=== PATIENT | male | born 1995 | race African-American/Black ===

== ENCOUNTER 2018-10-21 01:26 | Inpatient (IN) | payer SELFPAY ==
[2018-10-21] MEDS ORDERED: NS 0.9% 1000 ML** 1,000 ML IV ONE ×2 (01:57→03:11)
--- NOTE | 2018-10-21 02:02 | ED ---
HPI Diabetic - HPI Summary HPI Summary: Pt is a 23 y/o M presenting to the ED brought in by EMS for syncope. EMS reports the initial fingerstick read 40, and the second one read 30, and he had very low blood pressure, so they gave him d10. The pt reports that he was in a store to get something to drink due to a reported hx of hypoglycemia when he passed out. He denies fever. However, he denies a pmhx of diabetes. - History Of Current Complaint Chief Complaint: EDDiabeticProb Time Seen by Provider: 10/21/18 01:53 Hx Obtained From: Patient, EMS Onset/Duration: Sudden Onset, Lasting Minutes, Resolved Timing: Intermittent Episode Lasting - minutes Severity Initially: Moderate Severity Currently: Mild Character: Alert Aggravating: Other - hx of hypoglycemia Alleviating: EMS Treatment Associated Signs & Symptoms: Decreased Level of Conciousness Related History: Other - hx of hypoglycemia, no diagnosed diabetes - Allergies/Home Medications Allergies/Adverse Reactions: Allergies Allergy/AdvReac Type Severity Reaction Status Date / Time No Known Allergies Allergy Verified 10/21/18 01:45 Home Medications: Home Medications NK [No Home Medications Reported] 10/21/18 [History Confirmed 10/21/18] PMH/Surg Hx/FS Hx/Imm Hx Previously Healthy: Yes Endocrine/Hematology History: Reports: Other Endocrine/Hematological Disorders - hypoglycemia EENT History: Denies: Hx Deafness - Immunization History Date of Tetanus Vaccine: unk Date of Influenza Vaccine: unk Infectious Disease History: No Infectious Disease History: Denies: Traveled Outside the [place] in Last 30 Days - Family History Known Family History: Positive: Diabetes Negative: Renal Disease - Social History Alcohol Use: Rare Hx Substance Use: No Substance Use Type: Reports: None Hx Tobacco Use: No Smoking Status (MU): Never Smoked Tobacco Review of Systems Negative: Fever Positive: Syncope All Other Systems Reviewed And Are Negative: Yes Physical Exam - Summary Physical Exam Summary: VITAL SIGNS: Reviewed. GENERAL: Patient is a well-developed and nourished male who is lying comfortable in the stretcher. Patient is not in any acute respiratory distress. HEAD AND FACE: No signs of trauma. No ecchymosis, hematomas or skull depressions. No sinus tenderness. EYES: PERRLA, EOMI x 2, No injected conjunctiva, no nystagmus. EARS: Hearing grossly intact. Ear canals and tympanic membranes are within normal limits. MOUTH: Oropharynx within normal limits. NECK: Supple, trachea is midline, no adenopathy, no JVD, no carotid bruit, no c- spine tenderness, neck with full ROM. CHEST: Symmetric, no tenderness at palpation LUNGS: Clear to auscultation bilaterally. No wheezing or crackles. CVS: Tachycardic, S1 and S2 present, no murmurs or gallops appreciated. ABDOMEN: Soft, non-tender. No signs of distention. No rebound no guarding, and no masses palpated. Bowel sounds are normal. EXTREMITIES: FROM in all major joints, no edema, no cyanosis or clubbing. NEURO: Alert and oriented x 3 but slowly responsive. No acute neurological deficits. Speech is normal and follows commands. SKIN: Dry and warm GCS: 15 Triage Information Reviewed: Yes Vital Signs On Initial Exam: Initial Vitals Temp Pulse Resp BP Pulse Ox 97.8 F 108 16 147/126 100 10/21/18 01:39 10/21/18 01:39 10/21/18 01:39 10/21/18 01:39 10/21/18 01:39 Vital Signs Reviewed: Yes Diagnostics - Vital Signs Vital Signs Temp Pulse Resp BP Pulse Ox 10/21/18 01:39 97.8 F 108 16 147/126 100 - Laboratory Result Diagrams: 10/21/18 02:33 10/21/18 02:33 Lab Statement: Any lab studies that have been ordered have been reviewed, and results considered in the medical decision making process. - Radiology CXR Radiology Interpretation Completed By: ED Physician Summary of Radiographic Findings: No acute process. Pending official radiology report. - CT Brain CT CT Interpretation Completed By: Radiologist Summary of CT Findings: Normal non-contrast head CT. ED physician has reviewed this report. - EKG 0208 Cardiac Rate: Tachycardia - 114bpm EKG Rhythm: Sinus Tachycardia ST Segment: Normal Ectopy: None Re-Evaluation - Re-Evaluation 1st re-eval Re-Evaluation Time: 03:20 Change: Unchanged Comment: After speaking with the patient more, I learned his mother and twin sister have diabetes. He also notes he has experienced polydypsia for the last few months without polyuria. Diabetic Course/Dx - Course Course Of Treatment: Pt is a 23 y/o M presenting to the ED brought in by EMS for syncope. EMS reports the initial fingerstick read 40, and the second one read 30, and he had very low blood pressure, so they gave him d10. The pt reports a hx of hypoglycemia but no hx of diabetes. Brain CT shows normal non- contrast head CT. CXR shows no acute process, pending official radiology report. After speaking with the patient more at 0320, I learned his mother and twin sister have diabetes. He also notes he has experienced polydypsia for the last few months without polyuria. The pt will be admitted to [facility] under Dr. Blount with a dx of DKA. - Diagnoses Provider Diagnoses: DKA (diabetic ketoacidoses) - Critical Care Time Critical Care Time: 30-74 min Discharge - Sign-Out/Discharge Documenting (check all that apply): Patient Departure Patient Received Moderate/Deep Sedation with Procedure: No - Discharge Plan Condition: Stable Disposition: ADMITTED TO [facility] Referrals: [facility] [Outside] - Billing Disposition and Condition Condition: STABLE Disposition: Admitted to [facility] - Attestation Statements Document Initiated by Scribe: Yes Documenting Scribe: Bernadette Cruz Provider For Whom Scribe is Documenting (Include Credential): Jade Saunders MD. Scribe Attestation: IBernadette, dannied for Jade Saunders MD. on 10/21/18 at 0600. Scribe Documentation Reviewed: Yes Provider Attestation: The documentation as recorded by the scribe, Bernadette Cruz accurately reflects the service I personally performed and the decisions made by me, Jade Saunders MD. Status of Scribe Document: Viewed Consult Consult: 032 - Spoke with Dr. Blount who will be the accepting physician to [facility].
[2018-10-21 02:49] LABS: INR 1.19 (0.77-1.02)
[2018-10-21 02:50] LABS: ABS Basophils 0 10^3/ul (0-0.2); ABS Eosinophils 0 10^3/ul (0-0.6); ABS Lymphocytes 1.3 10^3/ul (1.0-4.8); ABS Monocytes 0.6 10^3/ul (0-0.8); ABS Neutrophils 2.3 10^3/ul (1.5-7.7); ABS Nucleated RBC 0 10^3/ul; Eosinophil % 0.8 %; Hematocrit 46 % (36-46); Mean Corpuscular HGB Conc 33 g/dL (31-36); Mean Corpuscular Hemoglobin 27 pg (27-31); Mean Corpuscular Volume 84 fL (80-94); Mean Platelet Volume 8.4 fL (7.4-10.4); Nucleated Red Blood Cells % 0.1; Platelet Count 219 10^3/uL (150-450); Red Blood Count 5.49 10^6 /uL (4.18-5.48); Red Cell Distribution Width 15 % (10.5-15); White Blood Count 4.3 10^3/uL (3.5-10.8)
[2018-10-21 02:59] LABS: ALT 8 U/L (7-52); AST 16 U/L (13-39); Albumin 4.3 g/dL (3.2-5.2); Albumin/Globulin Ratio 1.3 (1-3); Alkaline Phosphatase 62 U/L (34-104); Anion Gap 18 mmol/L (2-11); BUN/Creatinine Ratio 11.1 (8-20); Blood Urea Nitrogen 16 mg/dL (6-24); CO2 Carbon Dioxide 15 mmol/L (22-32); Calcium 9.9 mg/dL (8.6-10.3); Chloride 92 mmol/L (101-111); EGFR African American 74.2 (>60); EGFR Non-African American 61.3 (>60); Globulin 3.4 g/dL (2-4); Glucose 269 mg/dL (70-100); Magnesium 1.8 mg/dL (1.9-2.7); Potassium 4.2 mmol/L (3.5-5.0); Sodium 125 mmol/L (135-145); Total Protein 7.7 g/dL (6.4-8.9)
[2018-10-21 03:04] LABS: Alcohol < 10 mg/dL (<10)
[2018-10-21 03:20] LABS: TSH (Thyroid Stimulating Horm) 8.74 mcIU/mL (0.34-5.60)
[2018-10-21 03:57] LABS: Urine Appearance Cloudy; Urine Bacteria Absent (Absent); Urine Bilirubin Negative (Negative); Urine Blood 2+ (Negative); Urine Color Yellow; Urine Glucose Negative (Negative); Urine Ketones 2+ (Negative); Urine Nitrite Negative (Negative); Urine Protein 1+(30 mg/dL) (Negative); Urine Red Blood Cell Trace(0-2/hpf) (Absent); Urine Specific Gravity 1.012 (1.010-1.030); Urine Urobilinogen Negative (Negative); Urine White Blood Cell Absent (Absent)
[2018-10-21] MEDS ORDERED: Insulin IVPB 100 units/100 ml 100 UNITS/100 ML UNIT IVPB SCH ×2 (04:00→08:00)
[2018-10-21] MEDS ORDERED: D5W NS 0.9% 20Meq KCL 1000 ML* 1,000 ML IV SCH (04:00)
[2018-10-21 04:06] LABS: Barbiturates Urine Screen None Detected (None Detect); Benzodiazepine Urine Screen None Detected (None Detect); Urine Cannabinoids Screen None Detected (None Detect)
[2018-10-21] MEDS ORDERED: Magnesium Sulfate 1 GM IV* 1 GM/100 ML BAG IV ONE (06:08)
[2018-10-21 06:44] LABS: Potassium 3.7 mmol/L (3.5-5.0)
[2018-10-21 06:45] LABS: BUN/Creatinine Ratio 12.4 (8-20); Calcium 8.6 mg/dL (8.6-10.3); EGFR African American 106.9 (>60); EGFR Non-African American 88.3 (>60)
[2018-10-21 07:51] LABS: Phosphorus 4.8 mg/dL (2.5-5.0)
--- NOTE | 2018-10-21 07:57 | HP ---
HISTORY AND PHYSICAL: DATE OF ADMISSION: 10/21/18 PRIMARY CARE PHYSICIAN: None. HEALTHCARE PROXY: He prefers that his mother Nadira is his healthcare proxy. CODE STATUS: full code. CHIEF COMPLAINT: Acute tiredness and blurry eyes. HISTORY OF PRESENT ILLNESS: Mr. Beaver is a 23-year-old male without past medical history, who is presenting from a gas station where he was buying a sugary drink and had acute onset of blurry vision and tiredness, causing him to rest on the floor of the gas station, so EMS was called to take him to the hospital. On further questioning, he does report that for the last several days he has been experiencing progressive fatigue and tiredness with increased urination and thirst. He denies recent illness. Denies sore throat, cough, dysuria, chest pain, abdominal pain, nausea, vomiting, constipation, or diarrhea. Otherwise, 10-point review of systems negative. Per ED documentation, EMS reports initial fingerstick at the gas station was 40 and second one was 30, and the patient had very low blood pressure, so he was given D10. In the emergency room, the patient was noted to be dehydrated on exam. He had a chest x-ray without acute process and a head CT that was normal. He was noted to have a sodium of 125, corrected to 126 for glucose 270. Lactic acid 3.4, potassium 4.2, pH 7.14, anion gap 18, and urine with 2+ ketones and otherwise not concerning for infection. He was started on normal saline D5 with potassium and also an insulin drip. His IV fluids were set at 250 cc per hour. PAST MEDICAL HISTORY: The patient denies past medical diagnoses, surgeries, or hospitalization. MEDICATIONS: Denies home medications. ALLERGIES: No known drug allergies. FAMILY HISTORY: The patient has a twin sister with insulin-dependant diabetes and mother with type 2 diabetes, not on insulin. 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 He does not use tobacco, alcohol, or injectable drugs. Occasionally smokes marijuana. Lives alone, not in a relationship. PHYSICAL EXAMINATION GENERAL: Tired appearing young man, alert and interactive. VITAL SIGNS: The patient is afebrile with heart rate 110, respiratory rate 14, blood pressure 117/79, SaO2 100% on room air. HEENT: Pupils equal, round, reactive to light. Mucous membranes dry. NECK: Supple. LUNGS: Clear to auscultation bilaterally. HEART: Tachycardic but regular rhythm. No murmurs, gallops, or rubs. ABDOMEN: Soft, nontender, nondistended. EXTREMITIES: Warm and well perfused without edema. DIAGNOSTIC STUDIES/LAB DATA: CBC unremarkable. TSH elevated at 8.7 BMP significant for hyponatremia 126 when corrected. Anion gap 18, potassium 4.2. Creatinine elevated at 1.4, unknown baseline. Glucose 269. Lactic acid 3.4, not repeated. Magnesium 1.8. Hepatic panel notable for total bilirubin of 1.5. Chest x-ray without acute pathology. Brain CT, normal noncontrast head CT. ASSESSMENT AND PLAN: 23-year-old man with subacute polydipsia, fatigue, and acute tiredness and blurry vision, found with hypovolemia, hyperglycemia, acidosis and ketones in the urine concerning for new diagnosis of type 1 diabetes complicated by DKA. No evidence concerning for infection at this time. 1. Type 1 diabetes c/b diabetic ketoacidosis. The patient remains on insulin drip with D5 normal saline with added potassium. He should have q.2 hour BMP/Mg /Phos, pH, and glucose until his lab values are stable and his anion gap closes. Currently only with 1 set of lab results, but I suspect his DKA to resolve quickly. When serum glucose reaches 200 and ketoacidosis resolves, he will be titrated off IV insulin when able to tolerate PO and will be started on subcu insulin. He will have aggressive potassium repletion with close monitoring of his hemodynamics in the ICU. Consult endocrine in the morning for new type 1 DM diagnosis/education. 2. FEN: currently on IV fluids, continue until blood sugar improves and pt is euvolemic. 3. DVT prophylaxis, the patient is low risk and ambulatory. 4. FULL CODE. TIME SPENT: Approximately 60 minutes was spent on admission of this patient, more than half of which was spent at bedside for interview and exam. [id number]/CPS #: [id number] AIDEN
[2018-10-21] MEDS: D5W NS 0.9% 20Meq KCL 1000 ML* 1,000 ML IV SCH ×3 (08:05→19:49)
[2018-10-21] MEDS: Lactated Ringers 1000 ML Bag* 1,000 ML IV SCH ×2 (08:05→15:35)
--- NOTE | 2018-10-21 08:47 | PN ---
Subjective Date of Service: 10/21/18 Interval History: HOSPITALIST PROGRESS NOTE Patient seen and examined at bedside. Care reviewed and d/w Madelyn Villanueva RN. He feels a little better today. Denies N/V, abdominal pain; appetite has not yet returned. Family History: Unchanged from Admission Social History: Unchanged from Admission Past Medical History: Unchanged from Admission Objective Active Medications: Insulin Human Regular (Insulin Regular Iv Drip 1 Unit/Ml) 100 units in 100 mls @ 7.258 mls/hr IVPB Q13H TRICE; Protocol Lactated Ringer's (Lactated Ringers 1000 Ml Bag*) 1,000 mls @ 150 mls/hr IV PER RATE TRICE Potassium Chloride/Dextrose (D5w Ns 0.9% 20meq Kcl 1000 Ml*) 1,000 mls @ 150 mls/hr IV PER RATE TRICE Vital Signs - 8 hr 10/21/18 10/21/18 10/21/18 01:39 01:51 01:54 Temperature 97.8 F Pulse Rate 108 108 105 Respiratory 16 12 14 Rate Blood Pressure 147/126 147/126 (mmHg) O2 Sat by Pulse 100 100 100 Oximetry 10/21/18 10/21/18 10/21/18 02:00 02:45 03:00 Temperature Pulse Rate 103 100 102 Respiratory 17 15 18 Rate Blood Pressure 91/69 (mmHg) O2 Sat by Pulse 95 Oximetry 10/21/18 10/21/18 10/21/18 03:15 03:45 04:00 Temperature Pulse Rate 108 112 108 Respiratory 17 17 20 Rate Blood Pressure 90/69 117/72 (mmHg) O2 Sat by Pulse 100 Oximetry 10/21/18 10/21/18 10/21/18 04:15 04:45 05:00 Temperature Pulse Rate 111 112 Respiratory 21 22 18 Rate Blood Pressure 104/68 103/66 (mmHg) O2 Sat by Pulse 98 98 Oximetry 10/21/18 10/21/18 10/21/18 05:16 05:45 06:00 Temperature Pulse Rate 113 122 110 Respiratory 20 14 21 Rate Blood Pressure 118/74 117/79 (mmHg) O2 Sat by Pulse 100 100 100 Oximetry 10/21/18 10/21/18 10/21/18 06:18 06:45 07:00 Temperature Pulse Rate 129 129 118 Respiratory 19 14 22 Rate Blood Pressure 110/66 104/60 (mmHg) O2 Sat by Pulse 100 100 Oximetry 10/21/18 10/21/18 10/21/18 07:17 07:22 07:33 Temperature Pulse Rate 137 Respiratory 23 20 18 Rate Blood Pressure 110/57 105/61 103/67 (mmHg) O2 Sat by Pulse 100 Oximetry 10/21/18 10/21/18 07:35 07:53 Temperature 99.4 F 98 F Pulse Rate 160 140 Respiratory 18 19 Rate Blood Pressure 103/67 103/67 (mmHg) O2 Sat by Pulse 98 97 Oximetry Oxygen Devices in Use Now: None Appearance: Young thin gentleman lying in bed in NAD. Eyes: No Scleral Icterus Ears/Nose/Mouth/Throat: - - Dry MM Neck: Trachea Midline Respiratory: Symmetrical Chest Expansion and Respiratory Effort, Clear to Auscultation Cardiovascular: RRR - Normal S1 and S2 Abdominal: NL Sounds; No Tenderness; No Distention Extremities: No Edema Neurological: Alert and Oriented x 3, NL Muscle Strength and Tone Result Diagrams: 10/21/18 02:33 10/21/18 10:10 Assess/Plan/Problems-Billing Assessment: Mr Beaver is a 23yo M with no medical history, who presented to ED with c/o fatigue and blurry vision, found to have newly diagnosed diabetes with DKA. - Patient Problems (1) DKA (diabetic ketoacidosis) Comment: - DKA is now resolved. - Will start Lantus and d/c insulin drip. - Tolerating diet. - Still dehydrated, continue IVF. - Endocrinology consult requested. - Follow A1c. - Diabetes education. (2) DVT prophylaxis Comment: - SCDs. (3) Full code status Status and Disposition: Inpatient. May transfer to floor later if stable.
[2018-10-21 10:40] LABS: BUN/Creatinine Ratio 10.6 (8-20); Calcium 8.8 mg/dL (8.6-10.3); EGFR African American 121.4 (>60); EGFR Non-African American 100.4 (>60); Potassium 3.9 mmol/L (3.5-5.0)
[2018-10-21] MEDS ORDERED: Insulin GLARGINE(*) 1 UNITS UNIT SUBCUT SCH (11:00)
[2018-10-21] MEDS ORDERED: Insulin GLARGINE(*) 1 UNITS UNIT ONE (11:13)
[2018-10-21] MEDS ORDERED: Potassium Phosphate IV* 15 MMOLE in NS 0.9% 250 ML* 250 ML IVPB ONE (13:00)
[2018-10-21 15:30] LABS: Anion Gap 6 mmol/L (2-11); BUN/Creatinine Ratio 8.3 (8-20); Blood Urea Nitrogen 7 mg/dL (6-24); CO2 Carbon Dioxide 19 mmol/L (22-32); Calcium 8.3 mg/dL (8.6-10.3); Chloride 106 mmol/L (101-111); EGFR African American 138.3 (>60); EGFR Non-African American 114.3 (>60); Glucose 159 mg/dL (70-100); Potassium 3.8 mmol/L (3.5-5.0); Sodium 131 mmol/L (135-145)
[2018-10-21 15:31] LABS: Phosphorus < 1.0 mg/dL (2.5-5.0)
[2018-10-21] MEDS: Potassium & Sodium Phos 250MG* = 1 PACKET PO SCH ×2 (17:24→21:18)
[2018-10-22] MEDS: D5W NS 0.9% 20Meq KCL 1000 ML* 1,000 ML IV SCH ×2 (01:45→06:40)
[2018-10-22 07:02] LABS: BUN/Creatinine Ratio 4.5 (8-20); EGFR African American 179.5 (>60); EGFR Non-African American 148.3 (>60); Potassium 3.7 mmol/L (3.5-5.0)
[2018-10-22] MEDS: Potassium & Sodium Phos 250MG* = 1 PACKET PO SCH ×3 (09:22→21:40)
--- NOTE | 2018-10-22 12:13 | CONSULT ---
Consult Consult: [facility] Inpatient Consult Note Date of Consult: 10/22/18 Reason for Consult: hypoglycemia Reason for Admission: hypoglycemia with metabolic acidosis ASSESSMENT: 23 yo M with no significant PMH in usual state of health, now with with apparent syncopal episode caused by hypoglycemia. Unprovoked hypoglycemia with neuroglycopenia is exceedingly rare, but patient's history, including Whipple's Triad, is consistent with this disorder. To further characterize the possible causes of hypoglycemia, I recommend 72 hour fast with serial measurement of both fingerstick and plasma glucose, as below. The fast is ended when the plasma glucose concentration is <45, the patient has symptoms or signs of hypoglycemia, 72 hours have elapsed, or when the plasma glucose concentration is <60. Note is made of ketonuria on presentation, which makes insulin-mediated hypoglycemia unlikely. Toxic causes of lactic acidosis and hypoglycemia include : metformin, simvastatin, salicylates, ethanol, methanol, acetaminophen and catecholamines. Patient specifically denies ingestion of these agents. PLAN: - check fingerstick glucose every 2 hours and confirm measurements <60 with plasma glucose in lab - collect plasma specimen every 6 hours for measurement of plasma glucose - if plasma glucose <60, send specimen for the following labs: - insulin - C-peptide - proinsulin - serum ketones - insulin antibodies - sulfonylurea screen - when plasma glucose less than 60, administer 1mg of glucagon IV and measure fingerstick glucose at 0, 10, 20 and 30 minutes, then refeed the patient - if patient does not experience hypoglycemia in 72 hours, refeed patient with 2 cans of Ensure (or similar) and measure fingerstick glucose at 0, 30, 60, 90 and 120 minutes - call [phone] with questions SUBJECTIVE: History of Present Illness: 23 yo M presenting via EMS with near-syncope and hypoglocemia. He went to a gas station on Sunday night prior to presenting and noted altered vision, faint feeling and collapse. He did not completely lose consciousness, but felt as though he would. EMS noted severe hypoglycemia on arrival and gave dextrose with partial, rapid recovery in symptoms. In ED, he was found to have blood glucose >200 and metabolic acidosis, with presumptive diagnosis of DKA, despite A1c 4.8%. He did not tolerate insulin drip and developed relative hypoglycemia within several hours of receiving insulin. He has had several BG<70 in the next 24 hours. Past Medical History: none Medications Prior to Admission: none Inpatient Medications: Potassium Phos/Sodium Phos (Neutra Phos 250 Mg Khari*) 250 mg PO TID TRICE Last Admin: 10/22/18 14:29 Dose: 250 mg Allergies/Intolerances: NKDA Social History: Lives alone, but was homeless until very recently. Currently unemployed, formerly studied design. Denies recent alcohol, tobacco or other drugs. Not sexually active. Family History: Twin sister, currently . Strong family history of diabetes in multiple first and second-degree family members, including both parents. Review of Systems: As above. No recent FCNVD. 10 system review is otherwise negative. There is no history of obesity or recent weight loss. OBJECTIVE: Temp Pulse Resp BP Pulse Ox 98.1 F 77 16 123/53 99 10/22/18 15:26 10/22/18 15:26 10/22/18 15:26 10/22/18 15:26 10/22/18 15:26 General: alert, pleasant, oriented, no distress ENT: neck supple, no thyromegaly, no bruit is heard Chest: CTAB, no wheezing or crackles CV: RRR, no murmur Abdomen: soft, non-tender Extremities: no edema, distal pulses intact Skin: warm, dry, no rash Neuro: grossly intact motor/sensory in extremities Psych: restricted affect, pleasant Labs: WBC 4.3 10^3/uL (3.5-10.8) 10/21/18 02:33 RBC 5.49 10^6 /uL (4.18-5.48) H 10/21/18 02:33 Hgb 15.0 g/dL (14.0-18.0) 10/21/18 02:33 Hct 46 % (36-46) 10/21/18 02:33 MCV 84 fL (80-94) 10/21/18 02:33 MCH 27 pg (27-31) 10/21/18 02:33 MCHC 33 g/dL (31-36) 10/21/18 02:33 RDW 15 % (10.5-15) 10/21/18 02:33 Plt Count 219 10^3/uL (150-450) 10/21/18 02:33 MPV 8.4 fL (7.4-10.4) 10/21/18 02:33 Neut % (Auto) 53.4 % 10/21/18 02:33 Lymph % (Auto) 31.0 % 10/21/18 02:33 Parker % (Auto) 14.3 % 10/21/18 02:33 Eos % (Auto) 0.8 % 10/21/18 02:33 Baso % (Auto) 0.5 % 10/21/18 02:33 Absolute Neuts (auto) 2.3 10^3/ul (1.5-7.7) 10/21/18 02:33 Absolute Lymphs (auto) 1.3 10^3/ul (1.0-4.8) 10/21/18 02:33 Absolute Monos (auto) 0.6 10^3/ul (0-0.8) 10/21/18 02:33 Absolute Eos (auto) 0 10^3/ul (0-0.6) 10/21/18 02:33 Absolute Basos (auto) 0 10^3/ul (0-0.2) 10/21/18 02:33 Absolute Nucleated RBC 0 10^3/ul 10/21/18 02:33 Nucleated RBC % 0.1 10/21/18 02:33 Sickle Cell Screen Negative (Negative) 10/21/18 06:12 INR (Anticoag Therapy) 1.19 (0.77-1.02) H 10/21/18 02:33 APTT 48.0 seconds (26.0-36.3) H 10/21/18 02:33 VBG pH 7.27 (7.32-7.43) L 10/21/18 06:18 VBG pCO2 44 mmHg (41-51) 10/21/18 06:18 VBG pO2 < 38.0 mmHg (35-45) 10/21/18 06:18 VBG HCO3 18.2 mmol/L (24-28) L 10/21/18 06:18 VBG O2 Saturation 40.7 % (70-80) L 10/21/18 06:18 VBG Base Excess -6.6 mmol/L (0.0-4.0) L 10/21/18 06:18 Sodium 138 mmol/L (135-145) 10/22/18 06:21 Potassium 3.7 mmol/L (3.5-5.0) 10/22/18 06:21 Chloride 111 mmol/L (101-111) 10/22/18 06:21 Carbon Dioxide 23 mmol/L (22-32) 10/22/18 06:21 Anion Gap 4 mmol/L (2-11) 10/22/18 06:21 BUN 3 mg/dL (6-24) L 10/22/18 06:21 Creatinine 0.67 mg/dL (0.67-1.17) 10/22/18 06:21 Est GFR ( Amer) 179.5 (>60) 10/22/18 06:21 Est GFR (Non-Af Amer) 148.3 (>60) 10/22/18 06:21 BUN/Creatinine Ratio 4.5 (8-20) L 10/22/18 06:21 Glucose 96 mg/dL (70-100) 10/22/18 06:21 POC Glucose (mg/dL) 84 mg/dL (70-100) 10/22/18 16:04 Hemoglobin A1c 4.8 % (4.0-5.6) 10/21/18 02:33 Lactic Acid 1.6 mmol/L (0.5-2.0) 10/21/18 06:18 Calcium 8.0 mg/dL (8.6-10.3) L 10/22/18 06:21 Phosphorus < 1.0 mg/dL (2.5-5.0) L* 10/21/18 14:58 Magnesium 1.8 mg/dL (1.9-2.7) L 10/21/18 02:33 Total Bilirubin 1.50 mg/dL (0.2-1.0) H 10/21/18 02:33 AST 16 U/L (13-39) 10/21/18 02:33 ALT 8 U/L (7-52) 10/21/18 02:33 Alkaline Phosphatase 62 U/L (34-104) 10/21/18 02:33 Total Protein 7.7 g/dL (6.4-8.9) 10/21/18 02:33 Albumin 4.3 g/dL (3.2-5.2) 10/21/18 02:33 Globulin 3.4 g/dL (2-4) 10/21/18 02:33 Albumin/Globulin Ratio 1.3 (1-3) 10/21/18 02:33 TSH 8.74 mcIU/mL (0.34-5.60) H 10/21/18 02:33 Urine Color Yellow 10/21/18 03:38 Urine Appearance Cloudy 10/21/18 03:38 Urine pH 5.0 (5-9) 10/21/18 03:38 Ur Specific Maskell 1.012 (1.010-1.030) 10/21/18 03:38 Urine Protein 1+(30 mg/dl) (Negative) A 10/21/18 03:38 Urine Ketones 2+ (Negative) A 10/21/18 03:38 Urine Blood 2+ (Negative) A 10/21/18 03:38 Urine Nitrate Negative (Negative) 10/21/18 03:38 Urine Bilirubin Negative (Negative) 10/21/18 03:38 Urine Urobilinogen Negative (Negative) 10/21/18 03:38 Ur Leukocyte Esterase Negative (Negative) 10/21/18 03:38 Urine WBC (Auto) Absent (Absent) 10/21/18 03:38 Urine RBC (Auto) Trace(0-2/hpf) (Absent) 10/21/18 03:38 Urine Bacteria Absent (Absent) 10/21/18 03:38 Hyaline Casts Present (Absent) A 10/21/18 03:38 Urine Glucose Negative (Negative) 10/21/18 03:38 Urine Opiates Screen None detected (None Detect) 10/21/18 03:38 Ur Barbiturates Screen None detected (None Detect) 10/21/18 03:38 Ur Phencyclidine Scrn None detected (None Detect) 10/21/18 03:38 Ur Amphetamines Screen None detected (None Detect) 10/21/18 03:38 U Benzodiazepines Scrn None detected (None Detect) 10/21/18 03:38 Urine Cocaine Screen None detected (None Detect) 10/21/18 03:38 U Cannabinoids Screen None detected (None Detect) 10/21/18 03:38 Serum Alcohol < 10 mg/dL (<10) 10/21/18 02:33
--- NOTE | 2018-10-22 14:57 | PN ---
Subjective Date of Service: 10/22/18 Interval History: HOSPITALIST PROGRESS NOTE Patient seen and examined at bedside. Care reviewed and d/w Alysha Page RN. He feels better today, denies complaints. Further review of the records reveals patient was feeling dizzy, could not read his card while trying to buy a beverage, felt very weak and collapsed. Denies LOC. EMS was called and his glucose was 40. He received dextrose and was transported to ED, where he was hyperglycemia on arrival. Family History: Unchanged from Admission Social History: Unchanged from Admission Past Medical History: Unchanged from Admission Objective Active Medications: Potassium Phos/Sodium Phos (Neutra Phos 250 Mg Khari*) 250 mg PO TID TRICE Last Admin: 10/22/18 14:29 Dose: 250 mg Vital Signs - 8 hr 10/22/18 10/22/18 07:46 08:57 Temperature 97.9 F Pulse Rate 109 Respiratory 16 16 Rate Blood Pressure 108/51 (mmHg) O2 Sat by Pulse 99 Oximetry Oxygen Devices in Use Now: None Appearance: Thin young gentleman sitting up in bed in NAD. Eyes: No Scleral Icterus Ears/Nose/Mouth/Throat: Mucous Membranes Moist Neck: Trachea Midline Respiratory: Symmetrical Chest Expansion and Respiratory Effort, Clear to Auscultation Cardiovascular: RRR - Normal S1 and S2 Abdominal: NL Sounds; No Tenderness; No Distention Neurological: Alert and Oriented x 3, NL Muscle Strength and Tone, - - Poor eye contact Result Diagrams: 10/21/18 02:33 10/22/18 06:21 Assess/Plan/Problems-Billing Assessment: Mr Beaver is a 23yo M with no medical history, who presented to ED with c/o fatigue and blurry vision, found to have newly diagnosed diabetes with DKA. - Patient Problems (1) Hypoglycemia Comment: - Patient did not have DKA, he was actually hypoglycemic. - Case d/w Dr Mariusz Ribeiro - recommended NPO (water only) and d/c IVF. Check FS q2h and when <55 to check glucose (blood draw), insulin, C peptide levels. - His mother has type 2 DM and uses insulin. (2) DVT prophylaxis Comment: - SCDs. (3) Full code status Status and Disposition: Inpatient. Will pursue hypoglycemia w/u.
[2018-10-22] MEDS ORDERED: Glucagon* 1 MG VIAL IV ONE (23:47)
--- NOTE | 2018-10-23 01:28 | PN ---
Progress Note - Progress Note Date of Service: 10/23/18 Note: Patient with glucose < 60. Labs are being sent. Will follow instructions per Dr. Ribeiro and all him to have a regular diet once glucose and labs are ordered per instructions.
[2018-10-23] MEDS ORDERED: Acetaminophen TAB* 325 MG PO PRN (08:03)
[2018-10-23 09:21] LABS: BUN/Creatinine Ratio 5.2 (8-20); Calcium 8.5 mg/dL (8.6-10.3); EGFR Non-African American 175.2 (>60); Phosphorus 3.5 mg/dL (2.5-5.0); Potassium 3.5 mmol/L (3.5-5.0)
--- NOTE | 2018-10-23 10:52 | PN ---
Subjective Date of Service: 10/23/18 Family History: Unchanged from Admission Social History: Unchanged from Admission Past Medical History: Unchanged from Admission Objective Active Medications: Acetaminophen (Tylenol Tab*) 650 mg PO Q6H PRN PRN Reason: pain/fever Vital Signs - 8 hr 10/23/18 10/23/18 07:57 08:00 Temperature 99.0 F Pulse Rate 40 Respiratory 14 16 Rate Blood Pressure 101/46 (mmHg) O2 Sat by Pulse 100 Oximetry Oxygen Devices in Use Now: None Result Diagrams: 10/21/18 02:33 10/23/18 08:36 Microbiology and Other Data: Microbiology 10/21/18 07:40 Nasal Screen MRSA (PCR) - Final Nasal Mrsa Not Detected Assess/Plan/Problems-Billing Assessment: Mr Beaver is a 23yo M with no medical history, who presented to ED with c/o fatigue and blurry vision, found to have newly diagnosed diabetes with DKA. - Patient Problems (1) Hypoglycemia Comment: - Patient did not have DKA, he was actually hypoglycemic. - Case d/w Dr Mariusz Ribeiro - recommended NPO (water only) and d/c IVF. Check FS q2h and when <55 to check glucose (blood draw), insulin, C peptide levels. - His mother has type 2 DM and uses insulin. (2) DVT prophylaxis Comment: - SCDs. (3) Full code status Status and Disposition: Inpatient. Will pursue hypoglycemia w/u.
[2018-10-23] MEDS ORDERED: D5NS 0.9% 1000 ML BAG* 1,000 ML IV SCH (11:00)
--- NOTE | 2018-10-23 11:11 | PN ---
Progress Note - Progress Note Date of Service: 10/23/18 Note: [facility] Inpatient Follow-Up Note SUBJECTIVE: 23 yo M with admitted for hypoglycemia-associated syncope. He was made NPO yesterday at 12:00pm and was found to have BG<55 at approximately 1: 30am overnight. Plasma glucose 51mg/dL with insulin level 4.7. Patient received IV glucagon with >25mg/dL rise in glucose. BG remained normal after refeeding. OBJECTIVE: Laboratory Results - last 24 hr 10/22/18 10/22/18 10/22/18 19:53 21:43 23:38 Sickle Cell Screen Sodium Potassium Chloride Carbon Dioxide Anion Gap BUN Creatinine Est GFR ( Amer) Est GFR (Non-Af Amer) BUN/Creatinine Ratio Glucose POC Glucose (mg/dL) 65 L 63 L 59 L Insulin Level Calcium Phosphorus 10/23/18 10/23/18 10/23/18 00:05 01:41 01:41 Sickle Cell Screen Sodium Potassium Chloride Carbon Dioxide Anion Gap BUN Creatinine Est GFR ( Amer) Est GFR (Non-Af Amer) BUN/Creatinine Ratio Glucose 55 L POC Glucose (mg/dL) 42 L Insulin Level 4.7 Calcium Phosphorus 10/23/18 10/23/18 10/23/18 01:42 01:52 02:02 Sickle Cell Screen Sodium Potassium Chloride Carbon Dioxide Anion Gap BUN Creatinine Est GFR ( Amer) Est GFR (Non-Af Amer) BUN/Creatinine Ratio Glucose 51 L POC Glucose (mg/dL) 70 81 Insulin Level Calcium Phosphorus 10/23/18 10/23/18 10/23/18 07:51 08:36 09:39 Sickle Cell Screen Sodium 140 Potassium 3.5 Chloride 108 Carbon Dioxide 27 Anion Gap 5 BUN 3 L Creatinine 0.58 L Est GFR ( Amer) 212.0 Est GFR (Non-Af Amer) 175.2 BUN/Creatinine Ratio 5.2 L Glucose 74 POC Glucose (mg/dL) 77 127 H Insulin Level Calcium 8.5 L Phosphorus 3.5 ASSESSMENT: 23 yo M with insulin-mediated hypoglycemia. The finding of BG<55 and insulin >3 is abnormal and confirms the diagnosis of fasting hyperinsulinemia. Given the patient's history of syncope and risk of recurrent hypoglycemia in the fasting state, further investigation is warranted. PLAN: - check abdominal ultrasound with attention to pancreas - CT adbomen with contrast with attention to pancreas - check BG TID-AC, HS and 3AM - ad nava diet - consider surgery consult after imaging - call with questions [phone]
--- NOTE | 2018-10-23 15:17 | PN ---
Subjective Date of Service: 10/23/18 Interval History: HOSPITALIST PROGRESS NOTE Patient seen and examined at bedside. Care reviewed and d/w David Calvillo RN. He was hypoglycemic last night and w/u was sent as recommended by Dr Ribeiro. He did not feel as poorly last night as he did on night of admission. No weakness, no syncopal feeling. Feels well this AM. Family History: Unchanged from Admission Social History: Unchanged from Admission Past Medical History: Unchanged from Admission Objective Active Medications: Acetaminophen (Tylenol Tab*) 650 mg PO Q6H PRN PRN Reason: pain/fever Vital Signs - 8 hr 10/23/18 10/23/18 10/23/18 07:57 08:00 11:13 Temperature 99.0 F 99.8 F Pulse Rate 40 39 Respiratory 14 16 Rate Blood Pressure 101/46 96/41 (mmHg) O2 Sat by Pulse 100 100 Oximetry 10/23/18 10/23/18 11:24 11:59 Temperature 99.8 F Pulse Rate 70 Respiratory 18 18 Rate Blood Pressure 96/41 (mmHg) O2 Sat by Pulse 100 Oximetry Oxygen Devices in Use Now: None Appearance: Young gentleman lying in bed in NAD. Eyes: No Scleral Icterus Ears/Nose/Mouth/Throat: Mucous Membranes Moist Neck: Trachea Midline Respiratory: Symmetrical Chest Expansion and Respiratory Effort, Clear to Auscultation Cardiovascular: RRR - Normal S1 and S2 Abdominal: NL Sounds; No Tenderness; No Distention Neurological: Alert and Oriented x 3, NL Muscle Strength and Tone Result Diagrams: 10/21/18 02:33 10/23/18 08:36 Additional Lab and Data: Laboratory Tests 10/23/18 10/23/18 01:41 01:42 Glucose 51 L Insulin Level 4.7 Assess/Plan/Problems-Billing Assessment: Mr Beaver is a 23yo M with no medical history, who presented to ED with c/o fatigue and blurry vision, found to have newly diagnosed diabetes with DKA. - Patient Problems (1) Hypoglycemia Comment: - Patient did not have DKA, he was actually hypoglycemic. - Endocrinology input appreciated. - Insulin was elevated when he was hypoglycemic last night. Dr Ribeiro recommended abdome US to look for insulinoma. - Will continue regular diet and check FS daily at 3 AM. (2) DVT prophylaxis Comment: - SCDs. (3) Full code status Status and Disposition: Inpatient. Continue hypoglycemia w/u.
[2018-10-24 08:53] VITALS: BP 96/53
--- NOTE | 2018-10-24 15:36 | PN ---
Progress Note - Progress Note Date of Service: 10/24/18 Note: [facility] Follow-Up Note Date: 10/24/18 ASSESSMENT: 23 yo M with history of hypoglycemia and near-syncope prior to admission and fasting hypoglycemia observed during this admission. The finding of elevated insulin is storngly suggestive of insulin-mediated hypoglycemia syndrome, typically insulinoma. Abdominal ultrasound was negative for pancreatic lesions, however. The undetectable C-peptide at the time of hypoglycemia favors the diagnosis of exogenous insulin as the cause of hypoglycemia. Laboratory error in measurement of insulin and/or C-peptide is considered less-likely. The possibility of exogenous insulin use was discussed with patient. He again denied surreptitious use of insulin at any time. PLAN: - await proinsulin level - if <5 pmol/L, consult psychiatry for evaluation of Munchausen - consider repeat 72h fast protocol to assess for recurrent hypoglycemia - no further imaging studies until insulin-mediated hypoglycemia is confirmed
--- NOTE | 2018-10-24 20:43 | DS ---
CC: Dr. Alas of [facility] * DISCHARGE SUMMARY: DATE OF ADMISSION: DATE OF DISCHARGE: 10/24/18 HISTORY OF PRESENT ILLNESS: This 23-year-old man was admitted because of hypoglycemia. The patient had blurry vision and tiredness when he was buying a sugary drink at a gas station. He lay down on the floor and EMS was called. The first fingerstick EMS got was 40, the next one was 30. The patient was given some glucose. The patient had a sodium of 125. At that time, his blood sugar was 270. The patient has no significant past medical history. I note that he has a twin sister with insulin-dependent diabetes and a mother with type 2 diabetes. During the hospital stay, he was seen in consultation by Dr. Ribeiro. The lowest blood sugar recorded here was 51. His insulin level was 4.7 on 10/23/18 at 0141 hours. At that time, his blood sugar was 51. His C-peptide level at that time was less than 0.1. A proinsulin level from that time is pending. Insulin antibodies are also pending. The occurrence of a mid range insulin level at the time of hypoglycemia corresponding also to a nonmeasurable C-peptide level is indicative of exogenous insulin use. I explained to the patient that the test showed that his body was not producing too much insulin and that is not the cause of his low blood sugar. He did not appear to be very interested in our discussion and had a very flat affect. He said he would call his mother for a ride home. He was given no medications on discharge and was given an appointment at 10:20 a.m. on 10/28/18 to the [facility]. FINAL DIAGNOSES: Hypoglycemia due to exogenous insulin use. Proinsulin level is pending. DISCHARGE MEDICATIONS: None. DISCHARGE DISPOSITION: Discharge home. DISCHARGE CONDITION: Stable. [id number]/[facility] #: [id number] AIDEN
[2018-10-25 17:00] LABS: Proinsulin 0.8 pmol/L (3.6-22)
== END 2018-10-24 16:50 | disposition home or self-care (01) | DRG 644 ==
LOC: ED 01:26 → ICU 06:02 → MEDTELE 19:44
PROVIDERS: ADMIT Internal Medicine; ATTEND Internal Medicine
DX: E16.0 Drug-induced hypoglycemia without coma (principal); E87.1 Hypo-osmolality and hyponatremia; E87.2 Acidosis; R40.2412 Glasgow coma scale score 13-15, at arrival to emergency department; E86.0 Dehydration; E86.1 Hypovolemia; R00.0 Tachycardia, unspecified; T38.3X5A Adverse effect of insulin and oral hypoglycemic [antidiabetic] drugs, initial encounter; Y92.239 Unspecified place in hospital as the place of occurrence of the external cause; Z56.0 Unemployment, unspecified; Z59.0 Homelessness; Z83.3 Family history of diabetes mellitus
CPT/HCPCS: 36415; 70450; 71045; 76700; 80048; 80053; 80307; 80320; 81003; 81015; 82010; 82803; 82947; 83036; 83525; 83605; 83735; 84100; 84206; 84443; 84681; 85025; 85610; 85660; 85730; 86337; 87641; 93005; 99285; G0480; J1610; J1815; J3475

== ENCOUNTER 2021-09-28 00:19 | Inpatient (IN) ==
[2021-09-28 00:54] LABS: ABS Lymphocytes 1.3 10^3/ul (1.0-4.8); ABS Monocytes 1.2 10^3/ul (0-0.8); ABS Neutrophils 2.4 10^3/ul (1.5-7.7); Eosinophil % 0.9 %; Hematocrit 40 % (42-52); Hemoglobin 12.3 g/dL (14.0-18.0); Lymphocyte % 25.7 %; Mean Corpuscular HGB Conc 31 g/dL (31-36); Mean Corpuscular Hemoglobin 27 pg (27-31); Mean Corpuscular Volume 88 fL (80-94); Mean Platelet Volume 8.7 fL (7.4-10.4); Nucleated Red Blood Cells % 0.4; Platelet Count 152 10^3/uL (150-450); Red Blood Count 4.57 10^6 /uL (4.18-5.48); Red Cell Distribution Width 14 % (10-15); White Blood Count 4.9 10^3/uL (3.5-10.8)
[2021-09-28 01:21] LABS: Urine Benzodiazepine Screen None Detected (None Detect); Urine Cannabinoids Screen Presumptive Positive (None Detect); Urine Opiates Screen None Detected (None Detect)
[2021-09-28 01:41] LABS: Urine Appearance Clear; Urine Bilirubin Negative (Negative); Urine Blood 2+ (Negative); Urine Color Yellow; Urine Glucose Negative (Negative); Urine Ketones 2+ (Negative); Urine Nitrite Negative (Negative); Urine Protein Negative (Negative); Urine Specific Gravity 1.021 (1.002-1.030); Urine Urobilinogen Negative (Negative)
[2021-09-28 01:48] LABS: Urine Bacteria Absent (Absent); Urine Red Blood Cell 2+(6-10/hpf) (Absent); Urine White Blood Cell Trace(0-5/hpf) (Absent)
[2021-09-28 02:01] LABS: Albumin 3.8 g/dL (3.2-5.2); CO2 Carbon Dioxide 17 mmol/L (22-32); Calcium 8.6 mg/dL (8.6-10.3); Chloride 104 mmol/L (101-111); Sodium 131 mmol/L (135-145)
[2021-09-28 02:07] LABS: ALT 13 U/L (7-52); Alcohol, S < 13 mg/dL (<13); Alkaline Phosphatase 25 U/L (35-149); Blood Urea Nitrogen 12 mg/dL (6-24); Glucose 75 mg/dL (70-100); eGFR CKD-EPI 98.8 (>60)
[2021-09-28 02:22] LABS: Anion Gap 10 mmol/L (2-11)
[2021-09-28] MEDS ORDERED: Al Hydrox/Mg Hydrox/Simet LIQ 30 ML UDC PO PRN (14:15)
[2021-09-29 10:14] LABS: ALT 13 U/L (7-52); AST 25 U/L (13-39); Albumin 3.7 g/dL (3.2-5.2); Albumin/Globulin Ratio 1.5 (1-3); Alkaline Phosphatase 32 U/L (35-149); Anion Gap 11 mmol/L (2-11); Blood Urea Nitrogen 13 mg/dL (6-24); CO2 Carbon Dioxide 21 mmol/L (22-32); Calcium 8.6 mg/dL (8.6-10.3); Chloride 102 mmol/L (101-111); Cholesterol 121 mg/dL; Globulin 2.4 g/dL (2-4); HDL Cholesterol 26.4 mg/dL; LDL Cholesterol 69 mg/dL; Potassium 3.6 mmol/L (3.5-5.0); Sodium 134 mmol/L (135-145); Total Protein 6.1 g/dL (6.4-8.9); Triglycerides 126 mg/dL; eGFR CKD-EPI 126.9 (>60)
[2021-09-29 10:19] LABS: C Reactive Protein 81.49 mg/L (<8.01)
[2021-09-29 10:24] LABS: TSH Ultra Thyroid Stim Horm 10.18 mcIU/mL (0.34-5.60)
[2021-09-29 10:30] LABS: Prolactin 14.4 ng/mL (1.0-20.0)
[2021-09-29 10:37] LABS: Glucose 46 mg/dL (70-100)
[2021-09-29 10:39] LABS: Vitamin D Total 25(OH) 8.9 ng/mL (20-50)
[2021-09-29 11:45] LABS: Free T4 0.59 ng/dL (0.61-1.12)
[2021-09-29 12:46] LABS: Urine Benzodiazepine Screen None Detected (None Detect); Urine Buprenorphine Screen None Detected (None Detect); Urine Cannabinoids Screen Presumptive Positive (None Detect); Urine Fentanyl Screen None Detected (None Detect); Urine Hydrocodone Screen None Detected (None Detect); Urine Opiates Screen None Detected (None Detect)
[2021-09-29 13:29] LABS: Thyroid Peroxidase Antibodies 15.24 IU/mL (<9)
[2021-09-29 13:35] LABS: Insulin 0.4 mcIU/mL (2.0-16.0)
[2021-09-29 16:00] VITALS: BP 98/57
== END 2021-09-29 14:37 | disposition short-term general hospital (02) | DRG 640 ==
LOC: ED 00:19 → BSU 02:17 → ED 13:35 → BSU 14:19
PROVIDERS: ADMIT Psychiatry & Neurology Psychiatry; ATTEND Psychiatry & Neurology Psychiatry

== ENCOUNTER 2021-09-29 16:22 | Observation (INO) ==
[2021-09-29] MEDS ORDERED: Cosyntropin 0.25 MG VIAL IV ONE (16:39)
[2021-09-29] MEDS ORDERED: NS 0.9% 1000 ml BAG 1,000 ML IV SCH (16:45)
[2021-09-29] MEDS ORDERED: D5LR 1000 ml BAG 1,000 ML IV SCH (17:00)
[2021-09-29] MEDS ORDERED: Hydrocortisone INJ 100 MG/2ML 2 ML VIAL IV SCH (21:00)
[2021-09-29] MEDS: Hydrocortisone INJ 100 MG/2ML 2 ML VIAL IV SCH (21:42)
[2021-09-30] MEDS: Hydrocortisone INJ 100 MG/2ML 2 ML VIAL IV SCH ×4 (03:42→21:23)
[2021-09-30 06:55] LABS: ABS Lymphocytes 0.2 10^3/ul (1.0-4.8); ABS Monocytes 0.1 10^3/ul (0-0.8); ABS Neutrophils 1.8 10^3/ul (1.5-7.7); Eosinophil % 0.1 %; Hematocrit 35 % (42-52); Hemoglobin 11.7 g/dL (14.0-18.0); Lymphocyte % 9.5 %; Mean Corpuscular HGB Conc 34 g/dL (31-36); Mean Corpuscular Hemoglobin 28 pg (27-31); Mean Corpuscular Volume 82 fL (80-94); Mean Platelet Volume 8.2 fL (7.4-10.4); Platelet Count 126 10^3/uL (150-450); Red Blood Count 4.23 10^6 /uL (4.18-5.48); Red Cell Distribution Width 14 % (10-15); White Blood Count 2.1 10^3/uL (3.5-10.8)
[2021-09-30 07:13] LABS: Calcium 8.7 mg/dL (8.6-10.3); Potassium 4.3 mmol/L (3.5-5.0); eGFR CKD-EPI 131.1 (>60)
[2021-09-30] MEDS: Enoxaparin 40 MG/0.4 ML SYR SUBCUT SCH (12:34)
[2021-10-01] MEDS: Hydrocortisone INJ 100 MG/2ML 2 ML VIAL IV SCH (02:28)
[2021-10-01 07:03] LABS: Hematocrit 34 % (42-52); Mean Corpuscular HGB Conc 33 g/dL (31-36); Mean Corpuscular Hemoglobin 27 pg (27-31); Mean Corpuscular Volume 83 fL (80-94); Mean Platelet Volume 8.1 fL (7.4-10.4); Platelet Count 126 10^3/uL (150-450); Red Blood Count 4.05 10^6 /uL (4.18-5.48); Red Cell Distribution Width 13 % (10-15); White Blood Count 2.7 10^3/uL (3.5-10.8)
[2021-10-01 07:13] LABS: ABS Lymphocytes 0.3 10^3/ul (1.0-4.8); ABS Monocytes 0.2 10^3/ul (0-0.8); ABS Neutrophils 2.2 10^3/ul (1.5-7.7); Lymphocyte % 11.5 %
[2021-10-01 07:36] LABS: Nucleated Red Blood Cells % 0.2
[2021-10-01 08:00] LABS: Calcium 8.8 mg/dL (8.6-10.3); Potassium 4.5 mmol/L (3.5-5.0); eGFR CKD-EPI 126.4 (>60)
[2021-10-01] MEDS: Enoxaparin 40 MG/0.4 ML SYR SUBCUT SCH (10:19)
[2021-10-01] MEDS ORDERED: Iodixanol (CONTRAST) 320 MG/ML 100 ML SDV IV ONE (11:14)
[2021-10-01] MEDS ORDERED: Benzocaine/Menthol LOZ PO PRN (21:46)
[2021-10-02 07:00] LABS: ABS Lymphocytes 0.8 10^3/ul (1.0-4.8); ABS Monocytes 0.4 10^3/ul (0-0.8); ABS Neutrophils 2.6 10^3/ul (1.5-7.7); Hematocrit 31 % (42-52); Hemoglobin 10.6 g/dL (14.0-18.0); Lymphocyte % 20.8 %; Mean Corpuscular HGB Conc 34 g/dL (31-36); Mean Corpuscular Hemoglobin 28 pg (27-31); Mean Corpuscular Volume 82 fL (80-94); Mean Platelet Volume 8.2 fL (7.4-10.4); Platelet Count 126 10^3/uL (150-450); Red Blood Count 3.84 10^6 /uL (4.18-5.48); Red Cell Distribution Width 14 % (10-15); White Blood Count 3.8 10^3/uL (3.5-10.8)
[2021-10-02] MEDS: Enoxaparin 40 MG/0.4 ML SYR SUBCUT SCH (09:00)
[2021-10-02 11:29] VITALS: BP 116/52
== END 2021-10-02 16:30 | disposition home or self-care (01) ==
LOC: MED → SUATTDRO 16:22
PROVIDERS: ADMIT Internal Medicine; ATTEND Pediatrics